=== PATIENT | male | born 1935 | race Caucasian/White ===

== ENCOUNTER 2020-04-06 10:56 | Day surgery (SDC) | payer OTHER ==
[2020-04-01 13:54] LABS: APPEARANCE,URINE Cloudy (CLEAR); BILIRUBIN,URINE Negative (NEGATIVE); COLOR,URINE Yellow (YELLOW); GLUCOSE, URINE (UA) >=1000 mg/dL (NEGATIVE); KETONES,URINE Negative (NEGATIVE); LEUKOCYTE ESTERASE ,URINE Moderate (NEGATIVE); NITRATE,URINE Positive (NEGATIVE); OCCULT BLOOD,URINE Nonhemolyzed Trace (NEGATIVE); PROTEIN,URINE POS 1+ mg/dL (NEGATIVE); UROBILINOGEN,URINE 0.2 mg/dL (0.2-1.0)
[2020-04-01 13:55] LABS: INR 1.02 (0.85-1.15); PARTIAL THROMBOPLASTIN TIME 25.9 SEC (26.3-35.5)
[2020-04-01 14:18] LABS: BACTERIA,URINE Moderate /HPF (None Seen)
[2020-04-01 14:19] LABS: SQUAMOUS EPITHELIAL CELL,UR 0-2 /HPF (0-2)
--- NOTE | 2020-04-04 12:25 | NUR ---
LABS FAXED AND REPORTED ABNORMAL UA/CULTURE RESULTS TO MANDY AT DR PRICE OFFICE. SHE WILL INFORM HIM.
[2020-04-05 11:39] VITALS: BP 141/75
--- NOTE | 2020-04-05 14:11 | NUR ---
Labs Called Dr. Palmre's office to follow up on abnormal UA that was sent earlier. Ok to proceed with surgery
[2020-04-06] VITALS (17 sets, daily range): BP systolic 124–153; BP diastolic 51–72
[~2020-04-06] VITALS: Ht 177.8 cm; Wt 94.8 kg
[~2020-04-06 10:56] MED LIST: CLOP75TA14 PO; DULA0.75 SQ; GLIM4TAB36 PO; LEVO750T46 PO; LISI10TA7 PO; MELO-106 PO; METF500S7 PO; OMEG-125 PO; PRAV80TA21 PO; UBID100C10 PO
[2020-04-06] MEDS: CEFTRIAXONE SODIUM 1 GM IVP SCH ×2 (12:00→13:10)
[2020-04-06] MEDS ORDERED: SODIUM CHLORIDE 0.9% 1000ML 1,000 ML IV ONE (12:03)
[2020-04-06] MEDS ORDERED: ONDANSETRON HCL 4 MG/2 ML VIAL ONE (12:26)
[2020-04-06] MEDS ORDERED: SUCCINYLCHOLINE 200MG/10ML SYR ONE (12:26)
[2020-04-06] MEDS ORDERED: LIDOCAINE PF 2% 5ML ABBOJECT ONE (12:26)
[2020-04-06] MEDS ORDERED: FENTANYL CITRATE PF 50 MCG/1 ML 2ML VIAL ONE (12:27)
[2020-04-06] MEDS ORDERED: ROCURONIUM 10MG/1ML SYR 10 MG/ML ML ONE (12:27)
[2020-04-06] MEDS ORDERED: PROPOFOL 10 MG/ML 20ML VIAL IV ONE (12:27)
[2020-04-06] MEDS: GENTAMICIN SULFATE 320 MG in SODIUM CHLORIDE 0.9% 100 ML IV SCH ×2 (12:50→12:53)
[2020-04-06] MEDS ORDERED: EPHEDRINE SULFATE 50 MG/ML AMPULE ONE (13:38)
[2020-04-06] MEDS ORDERED: NEOSTIGMINE 5MG/5ML SYR IV ONE (13:51)
[2020-04-06] MEDS ORDERED: GLYCOPYRROLATE 1 MG/5 ML SYRINGE ONE (13:51)
--- NOTE | 2020-04-06 15:15 | NUR ---
PATIENT ARRIVED TO DAY PATIENT VIA STRETCHER BY AMANDO MCCLENDON. PATIENT [id number], VITAL SIGNS STABLE. MARTINEZ CATHETER IN PLACE WITH CONTINUOUS BLADDER IRRIGATION AND DRAINING CLEAR URINE.
--- NOTE | 2020-04-06 15:30 | NUR ---
MARTINEZ CATHETER BAG CHANGED OUT TO LEG BAG AND MARTINEZ CARE INSTRUCTIONS EXPLAINED TO PATIENT AND SPOUSE.
--- NOTE | 2020-04-06 15:55 | NUR ---
PATIENT DISCHARGED FROM FACILITY VIA WHEELCHAIR BY JASON SANCHEZ. PATIENT ASSISTED INTO PRIVATE VEHICLE DRIVEN BY SPOUSE.
== END 2020-04-06 15:55 | disposition home or self-care (01) ==
LOC: DAH 10:56
PROVIDERS: ATTEND Urology
DX: D29.1 Benign neoplasm of prostate (principal); Z20.828 Contact with and (suspected) exposure to other viral communicable diseases; R33.8 Other retention of urine; I25.10 Atherosclerotic heart disease of native coronary artery without angina pectoris; I10 Essential (primary) hypertension; E11.9 Type 2 diabetes mellitus without complications; M19.90 Unspecified osteoarthritis, unspecified site; Z86.73 Personal history of transient ischemic attack (TIA), and cerebral infarction without residual deficits; Z95.1 Presence of aortocoronary bypass graft; Z79.84 Long term (current) use of oral hypoglycemic drugs; Z79.01 Long term (current) use of anticoagulants; Z79.899 Other long term (current) drug therapy
CPT/HCPCS: 36415; 52648; 71045; 81001; 82948 ×2; 85610; 85730; 87077; 87088; 87186; 93005; A4215; A4221; A4222; A4223; A4354; A4358; A4600; A4657; A6260; C9803; J0330; J0696; J1580; J2001; J2405; J2704; J2710; J3010; J3490 ×2; J7030 ×2; U0003; 96365

== ENCOUNTER → 2021-12-21 | Outpatient (CLI) | payer OTHER ==
[~2021-12-21] MED LIST changes: +LISI10TA24 PO; -LISI10TA7 PO; -PRAV80TA21 PO
== END | disposition home or self-care (01) ==
LOC: SHCH 14:15
PROVIDERS: ATTEND Internal Medicine Cardiovascular Disease
DX: I08.0 Rheumatic disorders of both mitral and aortic valves (principal); I48.3 Typical atrial flutter
CPT/HCPCS: 93306

== ENCOUNTER 2022-01-10 05:46 | Day surgery (SDC) | payer OTHER ==
[2022-01-05 11:41] LABS: BASOPHILS % (AUTO) 1.3 % (0.0-5.0); EOSINOPHILS % (AUTO) 5.5 % (0.0-8.0); HEMATOCRIT 42.7 % (42-54); LYMPHOCYTES % (AUTO) 22.5 % (21.0-51.0); MEAN CORPUSCULAR HEMOGLOBIN 32.4 pg (27.0-33.0); MEAN CORPUSCULAR HGB CONC 32.6 g/dL (32.0-36.0); MEAN CORPUSCULAR VOLUME 99.5 fL (79-99); MONOCYTES % (AUTO) 10.7 % (3.0-13.0); NEUTROPHILS % (AUTO) 59.6 % (40.0-77.0); PLATELET COUNT (AUTO) 196 K/uL (130-400); RED BLOOD CELL COUNT(AUTO) 4.29 MIL/uL (4.50-6.20); WHITE BLOOD COUNT (AUTO) 5.4 K/uL (4.8-10.8)
[2022-01-05 11:51] LABS: CREATININE 1.1 mg/dL (0.5-1.5); POTASSIUM 4.7 mmol/L (3.5-5.1)
[2022-01-05 12:30] LABS: PROTHROMBIN TIME 10.9 SEC (9.6-11.6)
[2022-01-05 12:31] LABS: PARTIAL THROMBOPLASTIN TIME 29.3 SEC (26.3-35.5)
[2022-01-09 11:44] VITALS: BP 117/54
[~2022-01-10] VITALS: Ht 175.3 cm; Wt 98.8 kg
[2022-01-10] VITALS (7 sets, daily range): BP systolic 113–127; BP diastolic 49–68
[~2022-01-10 05:46] MED LIST changes: +APIX5TAB PO; -CLOP75TA14 PO; -DULA0.75 SQ; -LEVO750T46 PO; -MELO-106 PO; +METF-444 PO; -METF500S7 PO; -OMEG-125 PO; +PRAV80TA21 PO; -UBID100C10 PO
[2022-01-10] MEDS ORDERED: 0.9%NACL 1000ML 1,000 ML IV ONE (06:20)
[2022-01-10] MEDS ORDERED: LIDOCAINE HCL-MPF 2% 10ML AMP IJ ONE (07:22)
[2022-01-10] MEDS ORDERED: HEPARIN 10,000 UNIT/10ML (1,000 UNIT/ML) VIAL ONE (07:22)
[2022-01-10] MEDS ORDERED: MEPERIDINE-PF 25 MG/ML SYG ONE ×3 (07:23→08:49)
[2022-01-10] MEDS ORDERED: MIDAZOLAM HCL 1 MG/ML 2ML VIAL ONE ×3 (07:23→08:49)
[2022-01-10] MEDS ORDERED: ISOPROTERENOL HCL 0.2 MG/ML AMP/VIAL/BAG ONE (08:04)
[2022-01-10] MEDS ORDERED: AMIODARONE 150MG VIAL ONE (08:54)
== END 2022-01-10 13:50 | disposition home or self-care (01) ==
LOC: DAH 05:46
PROVIDERS: ATTEND Internal Medicine Cardiovascular Disease
DX: I48.3 Typical atrial flutter (principal); I42.9 Cardiomyopathy, unspecified; E11.9 Type 2 diabetes mellitus without complications; I44.0 Atrioventricular block, first degree; Z82.49 Family history of ischemic heart disease and other diseases of the circulatory system; Z79.899 Other long term (current) drug therapy; Z98.890 Other specified postprocedural states; Z83.3 Family history of diabetes mellitus; Z82.3 Family history of stroke; Z79.84 Long term (current) use of oral hypoglycemic drugs; Z79.82 Long term (current) use of aspirin; Z79.01 Long term (current) use of anticoagulants
CPT/HCPCS: 80048; 85025; 85610; 85730; 36415; 93005; 93653; 82948 ×2; C1894 ×2; A4649 ×2; C1732; C1730; J7030; J1644 ×2; J2250 ×3; J2175 ×3; J3490; J0282; A4215; A4222; A4221; A4663; A4216; A4606; A4223 ×3; 99156; 99157

== ENCOUNTER → 2022-04-26 | Outpatient (CLI) | payer OTHER ==
[2022-04-26 11:27] LABS: ALBUMIN 3.6 g/dL (3.5-5.0); CREATININE 1.1 mg/dL (0.5-1.5); POTASSIUM 4.4 mmol/L (3.5-5.1); THYROID STIMULATING HORMONE 1.86 uIU/mL (0.36-3.74); TOTAL PROTEIN, SERUM 7.4 g/dL (6.0-8.3)
[2022-04-28 03:46] LABS: RAPID PLASMA REAGIN NONREACTIVE (NONREACTIVE)
== END | disposition home or self-care (01) ==
LOC: LAB 09:14
PROVIDERS: ATTEND Internal Medicine Cardiovascular Disease
DX: I25.5 Ischemic cardiomyopathy (principal); I95.1 Orthostatic hypotension; E11.9 Type 2 diabetes mellitus without complications; I50.22 Chronic systolic (congestive) heart failure; R53.1 Weakness; Z79.01 Long term (current) use of anticoagulants; Z79.899 Other long term (current) drug therapy
CPT/HCPCS: 36415; 80053; 82533; 82607; 82747; 84439; 84443; 86592; 86701; 87390

== ENCOUNTER → 2023-02-20 | Outpatient (CLI) | payer OTHER ==
[~2023-02-20] MED LIST changes: +AMIO200T68 PO; +COGNIUM PO; +DAPA10TA PO; +FURO20TA4 PO; -LISI10TA24 PO; +LOSA25TA41 PO; +METO25TA6 PO; +OMEG-184 PO; +UBID1CAP56 PO; +VIT1TAB.13 PO
== END | disposition home or self-care (01) ==
LOC: SHCH 13:00
PROVIDERS: ATTEND Internal Medicine Cardiovascular Disease
DX: I25.5 Ischemic cardiomyopathy (principal); I47.1 Supraventricular tachycardia
CPT/HCPCS: 93306

== ENCOUNTER 2023-09-19 06:45 | Day surgery (SDC) | payer OTHER ==
[2023-09-13 12:16] VITALS: BP 104/57; PULSE 89; RESP 18
[2023-09-13 12:31] LABS: BASOPHILS # (AUTO) 0.05 K/uL (0.00-0.20); BASOPHILS % (AUTO) 0.5 % (0.0-5.0); EOSINOPHILS # (AUTO) 0.22 K/uL (0.00-0.70); EOSINOPHILS % (AUTO) 2.1 % (0.0-8.0); HEMATOCRIT 44.1 % (42-54); IMMATURE GRANULOCYTE ABSOLUTE 0.05 K/uL (0-1); LYMPHOCYTES # (AUTO) 1.2 K/uL (1.0-4.8); LYMPHOCYTES % (AUTO) 11.9 % (21.0-51.0); MEAN CORPUSCULAR HEMOGLOBIN 31.8 pg (27.0-33.0); MEAN CORPUSCULAR HGB CONC 32.4 g/dL (32.0-36.0); MONOCYTES # (AUTO) 0.9 K/uL (0.1-1.0); MONOCYTES % (AUTO) 8.8 % (3.0-13.0); NEUTROPHILS # (AUTO) 7.9 K/uL (1.8-7.7); NEUTROPHILS % (AUTO) 76.2 % (40.0-77.0); PLATELET COUNT (AUTO) 291 K/uL (130-400); RED CELL DISTRIBUTION WIDTH 13.4 % (11.0-15.5); WHITE BLOOD COUNT (AUTO) 10.3 K/uL (4.8-10.8)
[2023-09-13 12:37] LABS: CREATININE 1.1 mg/dL (0.5-1.3); POTASSIUM 4.3 mmol/L (3.5-5.1)
[2023-09-13 12:38] LABS: APPEARANCE,URINE CLOUDY (CLEAR); BILIRUBIN,URINE NEGATIVE (NEGATIVE); COLOR,URINE YELLOW (YELLOW); GLUCOSE, URINE (UA) 500 mg/dL (NEGATIVE); KETONES,URINE 5 mg/dL (NEGATIVE); LEUKOCYTE ESTERASE ,URINE MODERATE Leu/uL (NEGATIVE); NITRATE,URINE POSITIVE (NEGATIVE); OCCULT BLOOD,URINE LARGE (NEGATIVE); PROTEIN,URINE 100 mg/dL (NEGATIVE)
[2023-09-13 12:47] LABS: ADD UA MICROSCOPIC YES
[2023-09-13 13:04] LABS: INR 1.04 (0.85-1.15); PROTHROMBIN TIME 12.2 SEC (9.6-11.6)
[2023-09-13 13:05] LABS: PARTIAL THROMBOPLASTIN TIME 36.5 SEC (26.3-35.5)
[2023-09-13 13:23] LABS: WBC,URINE TNTC /HPF (0-1)
[2023-09-13 13:24] LABS: BACTERIA,URINE Moderate /HPF (None Seen); SQUAMOUS EPITHELIAL CELL,UR None Seen /HPF (0-2)
[2023-09-19] VITALS (19 sets, daily range): BP systolic 120–140; BP diastolic 52–78; PULSE 78–89; RESP 14–20
[~2023-09-19] VITALS: Ht 177.8 cm; Wt 91.1 kg
[~2023-09-19 06:45] MED LIST changes: -COGNIUM PO; -DAPA10TA PO; -FURO20TA4 PO; -GLIM4TAB36 PO; -METO25TA6 PO; -OMEG-184 PO; -PRAV80TA21 PO; +PREVAGEN PO; -UBID1CAP56 PO; -VIT1TAB.13 PO
[2023-09-19] MEDS: 0.9%NACL 1000ML 1,000 ML IV ONE (07:10)
[2023-09-19] MEDS: CEFTRIAXONE 1G VIAL ONE (07:10)
[2023-09-19] MEDS ORDERED: IOHEXOL-350 50ML VIAL IV ONE (07:45)
[2023-09-19] MEDS ORDERED: PROPOFOL 10 MG/ML 20ML VIAL IV ONE (08:16)
[2023-09-19] MEDS ORDERED: ROCURONIUM BROMIDE 10MG/1ML 5ML VL ONE (08:17)
[2023-09-19] MEDS ORDERED: FENTANYL CITRATE PF 50 MCG/1 ML 2ML VIAL ONE (08:18)
[2023-09-19] MEDS ORDERED: DEXAMETHASONE SOD PHOSPHATE 10MG/ML 1ML VIAL ONE (09:32)
[2023-09-19] MEDS ORDERED: ONDANSETRON 4MG INJ ONE (09:32)
[2023-09-19] MEDS: MEPERIDINE-PF 25 MG/ML SYG ONE ×2 (11:41)
[2023-09-19] MEDS: ONDANSETRON 4MG INJ ONE (11:41)
[2023-09-19] MEDS: ACETAMINOPHEN 1,000 MG/100 ML VIAL IV ONE (11:42)
== END 2023-09-19 13:05 | disposition home or self-care (01) ==
LOC: DAH 06:45
PROVIDERS: ATTEND Urology
DX: C67.1 Malignant neoplasm of dome of bladder (principal); R31.0 Gross hematuria; I25.10 Atherosclerotic heart disease of native coronary artery without angina pectoris; I10 Essential (primary) hypertension; M19.90 Unspecified osteoarthritis, unspecified site; E11.9 Type 2 diabetes mellitus without complications; Z83.3 Family history of diabetes mellitus; Z80.9 Family history of malignant neoplasm, unspecified; Z86.73 Personal history of transient ischemic attack (TIA), and cerebral infarction without residual deficits; Z87.891 Personal history of nicotine dependence; Z79.899 Other long term (current) drug therapy; Z79.84 Long term (current) use of oral hypoglycemic drugs
CPT/HCPCS: 80048; 85025; 85610; 85730; 87077; 87088; 87186; 81001; 36415; 71045; 93005; 52240; 82948 ×2; 88307; 88342; 88341; A6260; A4663; J7030 ×2; A4346; A4354; C1758; J3010; J1100; J3490; J0696; J2704; J2405 ×2; J2175 ×2; A4358; C1769; A4215; A4223; A4222; A4221; A5113; A4600; Q9967